=== PATIENT | female | born 1950 | race Caucasian/White ===

== ENCOUNTER 2016-08-23 07:31 | Day surgery (SDC) | payer OTHER ==
[~2016-08-23 07:31] MED LIST: FENTANYL 250 MCG/5 ML AMP IV PRN; LACTATED RINGERS 1,000 ML IV SCH; LIDOCAINE Viscous 2% 15 ML UDCUP PO PRN; MIDAZOLAM HCL 5 MG/5 ML VIAL IV PRN
[2016-08-23] MEDS ORDERED: LACTATED RINGERS 1,000 ML ONE (07:37)
[2016-08-23] MEDS ORDERED: FENTANYL 100 MCG/2 ML VIAL ONE (07:38)
[2016-08-23] MEDS ORDERED: MIDAZOLAM HCL 5 MG/5 ML VIAL ONE (07:38)
[2016-08-23] MEDS ORDERED: IV START KIT ONE (07:38)
[2016-08-23] MEDS ORDERED: LIDOCAINE Viscous 2% 15 ML UDCUP ONE (07:39)
[2016-08-23 12:36] LABS: HELICOBACTER PYLORII DETECTION NEGATIVE (NEGATIVE)
--- NOTE | 2016-08-25 13:06 | SURGPATH ---
[facility] [address] [place] [id number] Patient Name: LIZBETH COKER MR#: [id number] : 1950 Gender: F Specimen #: [id number] Collected: 08/23/2016 Received: 08/24/2016 Reported: 08/25/2016 Submitting Phys: FARIDA DENNY Copy To Phys: [facility] Clinical History / Pre-Operative Diagnosis: epigastric pain; early satiety; heartburn; rule out giardia, celiac sprue and gastritis Specimen Source / Surgical Procedure Performed: #1-duodenal biopsy; #2-antral biopsy Interpretation: 1. DUODENUM, BIOPSY: - NO PATHOLOGIC ABNORMALITY 2. ANTRUM, BIOPSY: - NO PATHOLOGIC ABNORMALITY Electronically Signed Out Steven Hair M.D. Gross Description: #1 The specimen is received in a formalin filled container labeled with the patient's name and "duodenal biopsy". Two draper biopsies are 0.3 and 0.4 cm. Totally embedded in cassette #1. #2 The specimen is received in a formalin filled container labeled with the patient's name and "antral biopsy". Two banks-draper biopsies are 0.5 and 0.6 cm. Totally embedded in cassette #2. Ravi Blanca, PCarmina. Microscopic Description: 1. Sections show normal duodenum. 2. Sections show normal gastric antrum. 1: [id number] 2: 07945 R10.13
== END 2016-08-23 09:00 | disposition home or self-care (01) ==
LOC: SDC 07:31
PROVIDERS: ATTEND Internal Medicine Gastroenterology
PROC: 0DB98ZX Excision of Duodenum, Via Natural or Artificial Opening Endoscopic, Diagnostic (ICD-10-PCS; principal; 2016-08-23)
PROC: 0DB68ZX Excision of Stomach, Via Natural or Artificial Opening Endoscopic, Diagnostic (ICD-10-PCS; 2016-08-23)
DX: K29.70 Gastritis, unspecified, without bleeding (principal); K29.80 Duodenitis without bleeding
CPT/HCPCS: 87081; 43239; J3010; J2250; A9270; J7120